=== PATIENT | female | born 2000 | race Two or more races ===

== ENCOUNTER 2021-06-01 23:56 | Emergency (ER) | payer OTHER ==
[~2021-06-01] VITALS: Ht 162.6 cm; Wt 51.3 kg
[2021-06-02] MEDS ORDERED: METROGEL-VAGINA70 GM VAG (03:26)
[2021-06-02] MEDS ORDERED: FLAGYL500MG PO (03:26)
[2021-06-02] MEDS ORDERED: URETRON D-S TAB1 TAB PO (03:28)
== END 2021-06-02 03:33 ==
LOC: ER 23:56
DX: N39.0 Urinary tract infection, site not specified (principal); R30.0 Dysuria; A59.01 Trichomonal vulvovaginitis

== ENCOUNTER 2021-11-09 10:13 | Emergency (ER) | payer OTHER ==
[~2021-11-09] VITALS: Ht 162.6 cm; Wt 52.2 kg
[~2021-11-09 10:13] MED LIST: FLAGYL500MG PO; METROGEL-VAGINA70 GM VAG; URETRON D-S TAB1 TAB PO
== END 2021-11-09 16:00 | disposition home or self-care (01) ==
LOC: ER 10:13
DX: K52.9 Noninfective gastroenteritis and colitis, unspecified (principal); N39.0 Urinary tract infection, site not specified

== ENCOUNTER 2022-03-27 14:39 | Emergency (ER) | payer OTHER ==
[~2022-03-27] VITALS: Ht 162.6 cm; Wt 52.2 kg
== END 2022-03-27 16:56 | disposition home or self-care (01) ==
LOC: ER 14:39
DX: O98.312 Other infections with a predominantly sexual mode of transmission complicating pregnancy, second trimester (principal); Z3A.16 16 weeks gestation of pregnancy; A59.01 Trichomonal vulvovaginitis